=== PATIENT | female | born 1975 | race Caucasian/White ===

== ENCOUNTER 2024-01-27 21:30 | Emergency (ER) | payer OTHER ==
[~2024-01-27] VITALS: Ht 152.4 cm; Wt 59.0 kg
[2024-01-27 21:45] VITALS: BP_SYST 135; PULSE 80; RESP 20; TEMP 97.5; O2SAT 100
[2024-01-27] MEDS: NACL 0.9% 1,000 ML IV ONE (22:57)
[2024-01-27] MEDS: ONDANSETRON HCL 4 MG/2 ML VIAL IVP ONE (23:04)
[2024-01-27 23:18] LABS: BASOPHILS # (AUTO) 0.1 K/uL (0.0-0.2); BASOPHILS % (AUTO) 0.9 % (0.0-2.0); EOSINOPHILS # (AUTO) 0.2 K/uL (0.0-0.4); EOSINOPHILS % (AUTO) 1.8 % (0.0-4.0); HEMATOCRIT 39.7 % (36-48); HEMOGLOBIN 13.7 g/dL (12.0-16.0); LYMPHOCYTES # (AUTO) 1.7 K/uL (1.0-5.5); LYMPHOCYTES % (AUTO) 18.8 % (20.5-51.5); MEAN CORPUSCULAR HEMOGLOBIN 30 pg (27-31); MEAN CORPUSCULAR HGB CONC 34 % (32-36); MEAN CORPUSCULAR VOLUME 87 fL (79.0-98.0); MONOCYTES # (AUTO) 0.7 K/uL (0.0-1.0); MONOCYTES % (AUTO) 7.8 % (1.7-9.3); NEUTROPHILS # (AUTO) 6.5 K/uL (1.8-7.7); NEUTROPHILS % (AUTO) 70.7 % (40.0-70.0); PLATELET COUNT (AUTO) 297 K/uL (130-430); RED BLOOD CELL COUNT(AUTO) 4.59 MIL/uL (4.2-6.2); RED CELL DISTRIBUTION WIDTH 12.6 % (9.0-15.0); WHITE BLOOD COUNT (AUTO) 9.2 K/uL (4.8-10.8)
[2024-01-27 23:51] LABS: BILIRUBIN,DIRECT 0.1 mg/dL (0.0-0.3); CALCIUM 9.1 mg/dL (8.4-11.0); CREATININE 0.74 mg/dL (0.55-1.30); POTASSIUM 3.2 mmol/L (3.5-5.1); TOTAL BILIRUBIN 0.6 mg/dL (0.0-1.0); TOTAL PROTEIN, SERUM 8.2 g/dL (6.4-8.3)
[2024-01-28] MEDS ORDERED: ONDA-8 TL (00:07)
[2024-01-28 00:20] VITALS: BP_SYST 119; PULSE 65; RESP 24; TEMP 97.9; O2SAT 97
[2024-01-28] MEDS: KETOROLAC TROMETHAMINE 30 MG VIAL IVP ONE (00:30)
== END 2024-01-28 00:45 | disposition home or self-care (01) ==
LOC: SED 21:30
DX: K52.9 Noninfective gastroenteritis and colitis, unspecified (principal); E86.0 Dehydration; R11.2 Nausea with vomiting, unspecified
CPT/HCPCS: 99284; 96374; 96361; 80076; 80048; 83690; 85025; 36415; 96375; J2405; J7030; J1885